=== PATIENT | male | born 1950 | race Caucasian/White ===

== ENCOUNTER 2024-08-06 09:54 | Day surgery (SDC) | payer MEDICARE, SELFPAY ==
[2024-08-04 13:25] VITALS: BMI 38.4
[2024-08-06 10:24] VITALS: BP 125/70; PULSE 95; RESP 15; TEMP 36.2; O2SAT 96
--- NOTE | 2024-08-06 11:05 | P.HP_ITS ---
History of Present Illness *Admission Date: 08/06/24 *Reason for visit:: Blood in stool/constipation with family history *History of present illness: Mr. Hirsch is a 74-year-old gentleman who is here for diagnostic colonoscopy secondary to rectal bleeding. The patient is on Xarelto. He does have a history of constipation. His mother had colon cancer. His last colonoscopy in September 2020 revealed 3 polyps (tubular adenomas x 3) which were removed. The examination is deemed medically necessary for diagnostic colonoscopy. The patient has been seen, interviewed and examined prior to the procedure by both myself and the anesthesia provider. [facility] Disclaimer: The information contained in this section may have been updated after the patient was seen, as this information can be updated by other users. Medical History (Updated 08/06/24 @ 10:22 by Toshia Reyes RN) Hx of hemorrhoids History of hyperlipidemia Hypertension Atrial fibrillation Surgical History History of colonoscopy with polypectomy Hx of tonsillectomy Family History Other Colon cancer Heart attack Social History Smoking Status: Never smoker alcohol intake: never substance use type: denies use current occupational status: retired Travel in the last 8 weeks: None number of children: 1 Have you lived/traveled outside [place] in past 30 days?: No Contact w/someone who lives/traveled outside US past 30 days?: No Exposure to someone with infectious disease in past 14 days?: No Do you have a fever (greater than 100.4 F or 38 C)?: No Have you tested positive for COVID-19: No Exposed to someone with COVID-19 in past 14 days?: No Do you have a sore throat?: No Do you have a cough?: No Do you have any weakness?: No Do you have any diarrhea?: No Are you experiencing any unusual bleeding?: No Do you have any muscle aches/pain?: No Do you have any abdominal pain?: No Are you experiencing loss of taste or smell?: No Other Medical History Have you received the Pneumonia Vaccine: Yes Review of Systems Review of Systems Review of systems (narrative): Negative *Cardiovascular Comments: Negative *Gastrointestinal Comments: Negative *Genitourinary Comments: Negative *Musculoskeletal Comments: Negative *Neurologic Comments: Negative Meds Home Medications and Allergies Home Medications ?Medication ?Instructions ?Recorded ?Confirmed ?Type diltiazem HCl 180 mg 180 mg PO DAILY 06/23/24 08/06/24 History capsule,extended release 24 hr, controlled (DILT-XR) potassium chloride 10 mEq 10 meq PO DAILY 06/23/24 08/06/24 History tablet,extended release(part/cryst) propranolol 60 mg capsule,24 60 mg PO DAILY 06/23/24 08/06/24 History hr,extended release ramipril 10 mg capsule 10 mg PO BID 06/23/24 08/06/24 History rivaroxaban 20 mg tablet (Xarelto) 20 mg PO DAILY 06/23/24 08/06/24 History rosuvastatin 10 mg tablet 10 mg PO DAILY 06/23/24 08/06/24 History sodium,potassium,mag sulfates 17.5 See Rx Instructions PO .COMPLEX 07/23/24 08/06/24 Rx gram-3.13 gram-1.6 gram oral soln #354 mL (Suprep Bowel Prep Kit) New Prescriptions to Start Prescriptions: Allergies Allergy/AdvReac Type Severity Reaction Status Date / Time No Known Allergies Allergy Verified 08/06/24 10:23 Exam Data for Last 24 hours Vital signs and Labs for Last 24 Hours: Temp Pulse Resp BP Pulse Ox O2 Del Method 97.1 F L 95 H 15 125/70 96 Room Air 08/06/24 10:24 08/06/24 10:24 08/06/24 10:24 08/06/24 10:24 08/06/24 10:24 08/06/24 10:24 I & O for Last 24 hours: Intake & Output 08/03/24 08/04/24 08/05/24 08/06/24 23:59 23:59 23:59 23:59 Weight 260 lb *Routine HEENT Exam Head: Present normocephalic Eye: Present EOMI and PERRL ENT: Present mucous membranes moist *Routine Neck Exam Neck: Present supple *Routine Respiratory Exam Respiratory: Present CTA bilaterally *Routine Cardiovascular Exam Cardiovascular: Present RRR *Routine Abdominal Exam Abdominal: Present soft and normoactive bowel sounds; Absent tenderness *Routine Rectal Exam Rectal:: deferred *Routine Genitalia Exam Genitalia:: deferred *Routine Extremities Exam Extremities: Absent cyanosis, clubbing or edema *Routine Skin Exam Skin: Present warm; Absent rash *Routine Neurological Exam Neurological: Present alert and oriented X3 Assessment and Plan *Assessment and plan (1) Rectal bleeding: Status: Acute Category: Medical Code(s): K62.5 - Hemorrhage of anus and rectum (2) Chronic constipation: Status: Acute Category: Medical Code(s): K59.09 - Other constipation (3) Family history of colon cancer: Status: Acute Category: Medical Code(s): Z80.0 - Family history of malignant neoplasm of digestive organs (4) History of adenomatous polyp of colon: Status: Acute Category: Medical Code(s): Z86.0101 - Personal history of adenomatous and serrated colon polyps Plan A/P: 1. Rectal bleeding with chronic constipation and strong family history (mother with colon cancer) is the preprocedural diagnosis. He also had prior adenomatous polyps and last colonoscopy was 4 years ago. The patient will be anesthetized/sedated using MAC sedation. The patient has been seen and examined. Cardiac and lung assessment prior to the examination is stable. Proceed with planned diagnostic colonoscopy
[2024-08-06 11:09] VITALS: O2SAT 96
--- NOTE | 2024-08-06 11:13 | EXP.ANES.CKL ---
[facility] Disclaimer: The information contained in this section may have been updated after the patient was seen, as this information can be updated by other users. Medical History (Updated 08/06/24 @ 10:22 by Toshia Reyes RN) Hx of hemorrhoids History of hyperlipidemia Hypertension Atrial fibrillation Surgical History History of colonoscopy with polypectomy Hx of tonsillectomy Family History Other Colon cancer Heart attack Social History Smoking Status: Never smoker alcohol intake: never substance use type: denies use current occupational status: retired Travel in the last 8 weeks: None number of children: 1 Have you lived/traveled outside [place] in past 30 days?: No Contact w/someone who lives/traveled outside US past 30 days?: No Exposure to someone with infectious disease in past 14 days?: No Do you have a fever (greater than 100.4 F or 38 C)?: No Have you tested positive for COVID-19: No Exposed to someone with COVID-19 in past 14 days?: No Do you have a sore throat?: No Do you have a cough?: No Do you have any weakness?: No Do you have any diarrhea?: No Are you experiencing any unusual bleeding?: No Do you have any muscle aches/pain?: No Do you have any abdominal pain?: No Are you experiencing loss of taste or smell?: No [facility] Anesthesia Checklist Patient Identification Patient Identification: Arm Band Structural Data Admitted From: Home Planned Operative Procedure/s: Colonoscopy Consent for Planned Operative Procedure(s) Verified: Yes Verified Documents: Surgical Consent and History and Physical NPO Status Verified Time NPO: 00:00 Additional verifications Anesthesia Reactions: No Airway Assessment Mallampati Score:: Class II C-Spine Mobility Assessed: Yes TMJ Mobility Assessed: Yes Dentition: Good Dentition Neurological Assessment Level of Consciousness: Awake, Alert and Appropriate Anesthesia Plan Anesthesia Risk discussed: Yes Anesthesia Plan: Verified ASA Class: III Anesthesia Type: MAC
--- NOTE | 2024-08-06 11:17 | HMH.PROCNOTE ---
[facility] Procedure Note Date: 08/06/24 Time: 11:35 Procedure Note:: Colonoscopy Procedure Report: Colonoscopy with cold snare polypectomy and hemorrhoid band ligation Endoscopist: Jero Abernathy II, MD Referring physician: Basil Quintanilla MD, [id number], [place] [address] Date of Procedure: August 06, 2024 Equipment: Olympus 190 variable stiffness pediatric colonoscope Sedation: MAC sedation Indication: Mr. Hirsch is a 74-year-old gentleman with a history of hemorrhoids and hemorrhoidal bleeding. This recurred again more recently. He did go back on Konsyl daily and this has helped. The patient is on Xarelto for his atrial fibrillation. The patient's mother had colon cancer. The patient's last colonoscopy was September 2020 and at that time he had 3 polyps (tubular adenomas x 3) which were removed. He also had extensive left-sided diverticulosis. His rectal bleeding is intermittent but he has noted blood in his underwear. He reports no abdominal pain or weight loss. Procedure: Prior to the procedure, a history and physical exam was performed, and patient's medications and allergies were reviewed. The risks, benefits and alternatives of the sedation and procedure were discussed with the patient. All questions were answered and informed consent was obtained. The patient was brought to the procedure room. Patient identification and proposed procedure were verified by the physician and the nurse. The patient was placed in a left lateral decubitus position and the scope was passed under direct vision. Throughout the procedure, the patient's blood pressure, pulse, and oxygen saturations were monitored continuously. The colonoscopy was accomplished without difficulty. The patient tolerated the procedure well. Findings: On digital rectal examination there was normal rectal tone. There were no external hemorrhoids. The prostate was 2-3+, smooth, soft, symmetric without nodules. The colonoscope was introduced through the anal canal to the rectum and advanced to the cecum. The ileocecal valve and appendiceal orifice were identified. The scope was advanced a short distance into the ileum which appeared grossly normal. The scope was then withdrawn into the colon. There were 5 diminutive polyps (cecum x 2 (3 and 3 mm), ascending x 2 (3 and 4 mm) and sigmoid x 1 (3 mm)). These were all removed via cold snare polypectomy. The remaining cecum, ascending and transverse colon and mucosa were grossly normal. There were scattered diverticuli throughout the descending and sigmoid colon (LEFT colon). The rectum itself was normal. Upon retroflexion within the rectum there were grade 2-3 internal hemorrhoids. 3 columns of hemorrhoids were banded using 3 bands with excellent ligation effect. The preparation was fair to good throughout with [place] Preparation Score of 7 out of 9. The cecal time was 14 minutes. Impression: 1. Diminutive colonic polyps x 5 2. Left-sided diverticulosis 3. Grade 2-3 internal hemorrhoids status post band ligation x 3 Plan: I will follow-up the polyp histology and recommend repeat surveillance colonoscopy again in 3 to 5 years. I would encourage continuation of bulking psyllium fiber supplementation on a long-term daily maintenance basis. I would even consider Vasculera treatment for the hemorrhoids. Vasculera is a treatment in the management of hemorrhoids and is considered a dietary supplemental treatment. The active ingredient helps to improve venous tone and reduction of capillary resistance which is disordered and hemorrhoidal disease. It improves lymphatic drainage and inflammation in the micro-circulation. Multiple studies have shown reduction of bleeding, discomfort, swelling and inflammation of hemorrhoids and improved resolution of symptoms in a shorter time. It is a very safe medical alternative to hemorrhoid management. I would also consider the Watchman procedure because of his long-term risk of bleeding with Xarelto. The Watchman Left Atrial Appendage Closure provides a new option for patients with non-valvular atrial fibrillation who may require an alternative to long-term use of blood thinners. This is especially important in persons that have acute or chronic gastrointestinal blood loss that is greatly exacerbated by the use of blood thinners (anticoagulation).
[2024-08-06 11:44] VITALS: BP 91/52; PULSE 89; RESP 18; TEMP 36.2; O2SAT 92
[2024-08-06 11:54] VITALS: BP 106/57; PULSE 90; RESP 18; O2SAT 97
[2024-08-06 12:04] VITALS: BP 109/66; PULSE 79; RESP 18; O2SAT 97
[2024-08-06 12:55] VITALS: BP 115/66; PULSE 84; RESP 18; O2SAT 94
== END 2024-08-06 12:55 | disposition home or self-care (01) ==
PROVIDERS: PCP Internal Medicine; Visit Provider Internal Medicine Gastroenterology
PROC: 0DJD8ZZ Inspection of Lower Intestinal Tract, Via Natural or Artificial Opening Endoscopic (ICD-10-PCS; CPT 45378; principal; 2024-08-06 11:30)
DX: K63.5 Polyp of colon (principal); K57.30 Diverticulosis of large intestine without perforation or abscess without bleeding; K64.8 Other hemorrhoids; K62.5 Hemorrhage of anus and rectum; K59.09 Other constipation; Z80.0 Family history of malignant neoplasm of digestive organs; Z86.0101 Personal history of adenomatous and serrated colon polyps
CPT/HCPCS: 45385; 45398; C1889